=== PATIENT | male | born 1960 | race Caucasian/White ===

== ENCOUNTER → 2019-05-19 | Outpatient (CLI) | payer MEDICARE, OTHER ==
--- NOTE | 2019-05-19 21:30 | NUR ---
CURRENT MEDICATION LIST: ASPIRIN 81, LYRICA 100MG, LESATIN 50, AZYCLOVIR 800, MONGTELUKAST 10, ATORVASTATIN, METFORMIN 1000, FLUXETINE 20. Addendum: 05/20/19 at 0054 by HARRIET LEMUS Amended: Links added.
== END | disposition home or self-care (01) ==
LOC: SLP 20:13
PROVIDERS: ATTEND Internal Medicine
DX: G47.33 Obstructive sleep apnea (adult) (pediatric) (principal); I10 Essential (primary) hypertension; E11.9 Type 2 diabetes mellitus without complications; Z68.32 Body mass index [BMI] 32.0-32.9, adult
CPT/HCPCS: 95810

== ENCOUNTER → 2019-06-07 | Outpatient (CLI) | payer MEDICARE | END | disposition home or self-care (01) | LOC: SLP 22:06 | PROVIDERS: ATTEND Internal Medicine | DX: G47.33 Obstructive sleep apnea (adult) (pediatric) (principal) | CPT/HCPCS: 95811 ==

== ENCOUNTER → 2020-02-24 | Outpatient (CLI) | payer OTHER | END | disposition home or self-care (01) | LOC: RAH 07:39 | PROVIDERS: ATTEND Internal Medicine Cardiovascular Disease | DX: Z13.6 Encounter for screening for cardiovascular disorders (principal) | CPT/HCPCS: 75571 ==

== ENCOUNTER → 2020-02-24 | Outpatient (CLI) | payer OTHER ==
[~2020-02-24] MED LIST: REGADENOSON 0.4 MG/5 ML PF SYG IVP SCH
== END | disposition home or self-care (01) ==
LOC: SHCH 07:34
PROVIDERS: ATTEND Internal Medicine Cardiovascular Disease
DX: R07.9 Chest pain, unspecified (principal)
CPT/HCPCS: 78452; 93017; 96374; A9500 ×2; J2785

== ENCOUNTER → 2020-04-02 | Outpatient (CLI) | payer OTHER ==
[2020-04-02 12:47] LABS: BASOPHILS % (AUTO) 0.6 % (0.0-5.0); EOSINOPHILS % (AUTO) 5.3 % (0.0-8.0); HEMATOCRIT 35.9 % (42-54); LYMPHOCYTES % (AUTO) 27.1 % (21.0-51.0); MEAN CORPUSCULAR VOLUME 91.3 fL (79-99); MONOCYTES % (AUTO) 4.9 % (3.0-13.0); NEUTROPHILS % (AUTO) 61.9 % (40.0-77.0); PLATELET COUNT (AUTO) 269 K/uL (130-400); RED BLOOD CELL COUNT(AUTO) 3.93 MIL/uL (4.50-6.20); RED CELL DISTRIBUTION WIDTH 13.2 % (11.0-15.5); WHITE BLOOD COUNT (AUTO) 8.8 K/uL (4.8-10.8)
[2020-04-02 12:54] LABS: CREATININE 1.3 mg/dL (0.5-1.5); POTASSIUM 4.6 mmol/L (3.5-5.1)
[2020-04-02 12:57] LABS: INR 0.92 (0.85-1.15); PARTIAL THROMBOPLASTIN TIME 25.2 SEC (26.3-35.5)
[2020-04-02 13:43] LABS: APPEARANCE,URINE Clear (CLEAR); BILIRUBIN,URINE Negative (NEGATIVE); COLOR,URINE Yellow (YELLOW); GLUCOSE, URINE (UA) 500 mg/dL (NEGATIVE); KETONES,URINE Negative (NEGATIVE); LEUKOCYTE ESTERASE ,URINE Moderate (NEGATIVE); NITRATE,URINE Negative (NEGATIVE); OCCULT BLOOD,URINE Trace (NEGATIVE); PROTEIN,URINE Negative (NEGATIVE)
[2020-04-02 14:21] LABS: BACTERIA,URINE Moderate /HPF (None Seen); RBC,URINE 0-1 /HPF (0-1)
== END ==
LOC: EDSTATUS 12:00 → LAB 12:01
PROVIDERS: ATTEND Internal Medicine Cardiovascular Disease
DX: Z01.818 Encounter for other preprocedural examination (principal); I25.10 Atherosclerotic heart disease of native coronary artery without angina pectoris; Z79.01 Long term (current) use of anticoagulants
CPT/HCPCS: 36415; 71045; 80048; 81001; 85025; 85610; 85730; 87077; 87088; 87186; 93005

== ENCOUNTER → 2020-09-18 | Outpatient (CLI) | payer OTHER ==
[~2020-09-18] VITALS: Ht 185.4 cm; Wt 115.0 kg
[2020-09-18 12:38] LABS: BASOPHILS % (AUTO) 0.5 % (0.0-5.0); EOSINOPHILS % (AUTO) 4.2 % (0.0-8.0); MEAN CORPUSCULAR HEMOGLOBIN 31.4 pg (27.0-33.0); MEAN CORPUSCULAR HGB CONC 34.8 g/dL (32.0-36.0); MEAN CORPUSCULAR VOLUME 90.5 fL (79-99); MONOCYTES % (AUTO) 5.1 % (3.0-13.0); PLATELET COUNT (AUTO) 282 K/uL (130-400); RED BLOOD CELL COUNT(AUTO) 4.42 MIL/uL (4.50-6.20); WHITE BLOOD COUNT (AUTO) 16.4 K/uL (4.8-10.8)
[2020-09-18 12:38] LABS: APPEARANCE,URINE Cloudy (CLEAR); BILIRUBIN,URINE Small (NEGATIVE); COLOR,URINE Dark Yellow (YELLOW); GLUCOSE, URINE (UA) 500 mg/dL (NEGATIVE); KETONES,URINE Trace mg/dL (NEGATIVE); LEUKOCYTE ESTERASE ,URINE Trace (NEGATIVE); NITRATE,URINE Negative (NEGATIVE); OCCULT BLOOD,URINE Negative (NEGATIVE); PROTEIN,URINE POS 1+ mg/dL (NEGATIVE)
[2020-09-18 12:50] LABS: INR 0.92 (0.85-1.15); PARTIAL THROMBOPLASTIN TIME 24.4 SEC (26.3-35.5)
[2020-09-18 12:55] LABS: BACTERIA,URINE Rare /HPF (None Seen); MUCUS,URINE Moderate LPF (None Seen); RBC,URINE 0-1 /HPF (0-1); SQUAMOUS EPITHELIAL CELL,UR Rare /HPF (0-2); WBC,URINE 0-1 /HPF (0-1)
[2020-09-18 12:57] LABS: CREATININE 1.4 mg/dL (0.5-1.5); POTASSIUM 4.8 mmol/L (3.5-5.1)
--- NOTE | 2020-09-21 10:34 | NUR ---
LABS ABNORMAL WBC , CREA LEVEL REPORTED TO Esther ENGLE, FURTHER ORDERS GIVEN AND WILL BE CARRIED OUT
--- NOTE | 2020-09-21 10:37 | NUR ---
LABS PER CYNDIE REPEAT CBC EARLY AM DAY OF PROCEUDRE. IF WBC CONTINUES TO BE ELEVATED PATIENT WILL BE RESCHEDULED FOR ANOTHER DAY
--- NOTE | 2020-09-21 11:24 | NUR ---
PREOP CALLED PATIENT TO PREOP OVER THE PHONE , PT STATED HAS HAD DIARRHEA NON STOP AND ABD PAIN SINCE MONDAY. DENIES FEVER. PT WILL SEE PCP TODAY. INFORMED I ULI NEGLE, PROCEDURE WAS CANCELLED AT THIS TIME PT INFORMED. SCHEDULING NOTIFIED
== END ==
LOC: DAH 10:00 → EDSTATUS 09-23 11:00
PROVIDERS: ATTEND Internal Medicine Cardiovascular Disease
DX: Z01.810 Encounter for preprocedural cardiovascular examination (principal); I25.119 Atherosclerotic heart disease of native coronary artery with unspecified angina pectoris; I25.2 Old myocardial infarction; I10 Essential (primary) hypertension; E78.5 Hyperlipidemia, unspecified; E11.9 Type 2 diabetes mellitus without complications; E66.9 Obesity, unspecified; G47.33 Obstructive sleep apnea (adult) (pediatric); K21.9 Gastro-esophageal reflux disease without esophagitis; Z79.84 Long term (current) use of oral hypoglycemic drugs; Z79.82 Long term (current) use of aspirin; Z79.899 Other long term (current) drug therapy; Z98.890 Other specified postprocedural states; Z88.8 Allergy status to other drugs, medicaments and biological substances; Z91.018 Allergy to other foods; Z68.33 Body mass index [BMI] 33.0-33.9, adult; Z53.8 Procedure and treatment not carried out for other reasons
CPT/HCPCS: 36415; 71045; 80048; 81001; 85025; 85610; 85730; 93005

== ENCOUNTER 2020-11-09 07:35 | Day surgery (SDC) | payer OTHER ==
[2020-11-06 12:12] LABS: BASOPHILS % (AUTO) 0.7 % (0.0-5.0); EOSINOPHILS % (AUTO) 7.1 % (0.0-8.0); HEMATOCRIT 42.3 % (42-54); LYMPHOCYTES % (AUTO) 29.9 % (21.0-51.0); MEAN CORPUSCULAR HEMOGLOBIN 31.1 pg (27.0-33.0); MEAN CORPUSCULAR VOLUME 91.4 fL (79-99); MONOCYTES % (AUTO) 4.7 % (3.0-13.0); NEUTROPHILS % (AUTO) 57.3 % (40.0-77.0); PLATELET COUNT (AUTO) 318 K/uL (130-400); RED BLOOD CELL COUNT(AUTO) 4.63 MIL/uL (4.50-6.20); RED CELL DISTRIBUTION WIDTH 13.2 % (11.0-15.5); WHITE BLOOD COUNT (AUTO) 11.9 K/uL (4.8-10.8)
[2020-11-06 12:22] LABS: CREATININE 1.6 mg/dL (0.5-1.5); POTASSIUM 4.9 mmol/L (3.5-5.1)
[2020-11-06 12:24] LABS: INR 0.96 (0.85-1.15); PROTHROMBIN TIME 10.5 SEC (9.6-11.6)
[2020-11-06 12:25] LABS: PARTIAL THROMBOPLASTIN TIME 24.2 SEC (26.3-35.5)
[2020-11-06 12:52] LABS: APPEARANCE,URINE Clear (CLEAR); BILIRUBIN,URINE Negative (NEGATIVE); COLOR,URINE Yellow (YELLOW); GLUCOSE, URINE (UA) 500 mg/dL (NEGATIVE); KETONES,URINE Trace mg/dL (NEGATIVE); LEUKOCYTE ESTERASE ,URINE Negative (NEGATIVE); NITRATE,URINE Negative (NEGATIVE); OCCULT BLOOD,URINE Negative (NEGATIVE); PROTEIN,URINE Negative (NEGATIVE)
[2020-11-06 13:08] LABS: BACTERIA,URINE Few /HPF (None Seen); SQUAMOUS EPITHELIAL CELL,UR 0-2 /HPF (0-2); WBC,URINE None Seen /HPF (0-1)
[2020-11-06 13:33] VITALS: BP 151/78
[2020-11-09] VITALS (11 sets, daily range): BP systolic 118–143; BP diastolic 57–83
[~2020-11-09] VITALS: Ht 185.4 cm; Wt 110.8 kg
[~2020-11-09 07:35] MED LIST changes: +ACYC800T PO; +ASPI-1443 PO; +ATOR80TA PO; +CETI-89 PO; +DIPH25TA51 PO; +ESOM40CA PO; +FLUO20CA30 PO; +LABE100T5 PO; +LOSA25TA41 PO; +METF-446 PO; +MONT10TA21 PO; +PRED20TA3 PO; +PREG100C PO; -REGADENOSON 0.4 MG/5 ML PF SYG IVP SCH
[2020-11-09] MEDS ORDERED: SODIUM CHLORIDE 0.9% 1000ML 1,000 ML IV ONE (07:49)
[2020-11-09] MEDS ORDERED: DiphenhydrAMINE HCL 50 MG/ML VIAL ONE (08:09)
[2020-11-09] MEDS ORDERED: METHYLPREDNISOLONE SOD SUCC 125MG/2ML VIAL ONE (08:09)
[2020-11-09] MEDS ORDERED: SODIUM CHLORIDE 0.9% 1000ML 1,000 ML IV SCH ×2 (08:30→11:15)
[2020-11-09] MEDS ORDERED: HEPARIN SODIUM 1000UNIT/ML 10ML VIAL ONE (08:56)
[2020-11-09] MEDS ORDERED: SODIUM BICARB 50MEQ 50ML VIAL 50 ML ONE (08:56)
[2020-11-09] MEDS ORDERED: NITROGLYCERIN 2 MG/VIAL VIAL IV ONE (08:56)
[2020-11-09] MEDS ORDERED: IOHEXOL-350 50ML VIAL IV ONE (08:57)
[2020-11-09] MEDS ORDERED: LIDOCAINE HCL 2% 20ML ONE (08:57)
[2020-11-09] MEDS ORDERED: MEPERIDINE-PF 25 MG/ML SYG ONE ×2 (08:57→10:23)
[2020-11-09] MEDS ORDERED: IOHEXOL 350 MG/ML 100ML INFUS..BTL IV ONE (08:57)
[2020-11-09] MEDS ORDERED: MIDAZOLAM HCL 1 MG/ML 2ML VIAL ONE ×2 (08:57→10:23)
[2020-11-09] MEDS ORDERED: INSULIN HUMULIN R 100 UNIT/ML 3ML SQ SCH ×2 (09:15→11:30)
[2020-11-09] MEDS ORDERED: NICARDIPINE HCL 25 MG/10 ML ML IV ONE (09:35)
[2020-11-09] MEDS ORDERED: DEXTROSE 50%-WATER 50 ML DISP.SYRIN IV PRN (11:15)
== END 2020-11-09 15:10 | disposition home or self-care (01) ==
LOC: DAH 07:35
PROVIDERS: ATTEND Internal Medicine Cardiovascular Disease
DX: I25.118 Atherosclerotic heart disease of native coronary artery with other forms of angina pectoris (principal); E11.9 Type 2 diabetes mellitus without complications; I10 Essential (primary) hypertension; E78.5 Hyperlipidemia, unspecified; E66.9 Obesity, unspecified; K21.9 Gastro-esophageal reflux disease without esophagitis; G47.33 Obstructive sleep apnea (adult) (pediatric); E86.0 Dehydration; Z98.84 Bariatric surgery status; Z99.89 Dependence on other enabling machines and devices; Z79.4 Long term (current) use of insulin; Z79.82 Long term (current) use of aspirin; Z79.899 Other long term (current) drug therapy; Z79.01 Long term (current) use of anticoagulants
CPT/HCPCS: 36415; 71045; 80048; 81001; 82948 ×3; 85025; 85610; 85730; 93005; 93458; 96360; 96361; A4215; A4216; A4221; A4222; A4223 ×3; A4606; A4663; C1769; C1894; J1200; J1644 ×2; J1815 ×2; J2175 ×2; J2250 ×2; J2930; J3490 ×4; J7030; Q9965; Q9967; 99156; 99157

== ENCOUNTER → 2020-11-26 | Outpatient (CLI) | payer OTHER ==
[~2020-11-26] MED LIST changes: -DIPH25TA51 PO; -PRED20TA3 PO
== END | disposition home or self-care (01) ==
LOC: OIH 09:45
PROVIDERS: ATTEND Internal Medicine
DX: J44.9 Chronic obstructive pulmonary disease, unspecified (principal); M47.814 Spondylosis without myelopathy or radiculopathy, thoracic region
CPT/HCPCS: 71046

== ENCOUNTER → 2021-01-13 | Outpatient (CLI) | payer OTHER | END | disposition home or self-care (01) | LOC: RAH 08:45 | PROVIDERS: ATTEND Internal Medicine Gastroenterology | DX: R93.3 Abnormal findings on diagnostic imaging of other parts of digestive tract (principal) | CPT/HCPCS: 74240 ==

== ENCOUNTER → 2022-07-21 | Outpatient (CLI) | payer OTHER ==
[~2022-07-21] MED LIST changes: +ACYC-138 PO; -ACYC800T PO; -LABE100T5 PO; +LABE100T7 PO
== END | disposition home or self-care (01) ==
LOC: RAH 11:03
PROVIDERS: ATTEND Psychiatry & Neurology Neurology
DX: G31.9 Degenerative disease of nervous system, unspecified (principal); J32.0 Chronic maxillary sinusitis; R26.0 Ataxic gait; M47.812 Spondylosis without myelopathy or radiculopathy, cervical region; M48.02 Spinal stenosis, cervical region; Z98.890 Other specified postprocedural states
CPT/HCPCS: 70551; 72141

== ENCOUNTER → 2024-03-25 | Outpatient (CLI) | payer OTHER ==
[~2024-03-25] MED LIST changes: +MONT-46 PO; -MONT10TA21 PO
[2024-03-25] MEDS: REGADENOSON 0.4 MG/5 ML PF SYG IVP ONE (13:31)
== END | disposition home or self-care (01) ==
LOC: SHCH 08:11
PROVIDERS: ATTEND Internal Medicine Cardiovascular Disease
DX: R00.2 Palpitations (principal); R06.09 Other forms of dyspnea
CPT/HCPCS: 78452; 96374; 93017; J2785; A9500 ×2

== ENCOUNTER → 2024-12-10 | Outpatient (CLI) | payer OTHER ==
[~2024-12-10] MED LIST changes: +ATOR-428 PO; -ATOR80TA PO
--- NOTE | 2024-12-11 08:28 | HMCSR ---
APPROVED REPORT Laterality: Bilateral Indications R09.89 Doppler Spectral Velocity Analysis PSV / EDVPSV / EDV ECA (R) 92 / cm/sECA (L) 147 / cm/s dICA (R) 81 / 28 cm/sdICA (L) 98 / 37 cm/s Kelsi (R) 79 / 29 cm/smICA (L) 66 / 19 cm/s pICA (R) 64 / 13 cm/spICA (L) 90 / 22 cm/s dCCA (R) 73 / 17 cm/sdCCA (L) 85 / 22 cm/s mCCA (R) 99 / 16 cm/smCCA (L) 83 / 21 cm/s pCCA (R) 68 / 15 cm/spCCA (L) 63 / 12 cm/s Vert (R) 61 / cm/sVert (L) 61 / cm/s Subl. (R) 114 / cm/sSubl. (L) 177 / cm/s ICA/CCA 0.82ICA/CCA 1.15 Technologist Impression Minimal plaque noted in the bilateral carotid system ZENAIDA and LICA appear patent without hemodynamic significance. Bilateral vertebral arteries appear antegrade. Conclusion Minimal plaque noted in the bilateral carotid system ZENAIDA and LICA appear patent without hemodynamic significance. Bilateral vertebral arteries appear antegrade. Conclusion Minimal plaque noted in the bilateral carotid system ZENAIDA and LICA appear patent without hemodynamic significance. Bilateral vertebral arteries appear antegrade.
== END | disposition home or self-care (01) ==
LOC: SHCH 14:36
PROVIDERS: ATTEND Internal Medicine Cardiovascular Disease
DX: I65.23 Occlusion and stenosis of bilateral carotid arteries (principal); R09.89 Other specified symptoms and signs involving the circulatory and respiratory systems
CPT/HCPCS: 93880

== ENCOUNTER → 2024-12-13 | Outpatient (CLI) | payer OTHER ==
--- NOTE | 2024-12-16 09:19 | HMCSR ---
APPROVED REPORT EXAM: Two-dimensional and M-mode echocardiogram with Doppler and color Doppler. INDICATION ICD: Atherosclerotic heart disease of [place] coronary artery without angina pectoris I25.10 2D Dimensions RVDd4.6 cmLVEF(%)59.1 (>50%)LVED Vol(simp.)106.8 mL IVSd0.8 (0.7-1.1cm)FS(%)32 %LVES Vol(simp.)37.2 mL LVDd5.6 (3.8-5.6cm)LA (2D)4.2 (1.6-4.0cm)LVEF(%, simp.)65 % PWd1.2 (0.7-1.1cm)Ao Root(2D)3.7 (2.0-3.7cm)LA ESV INDEX (BP)28.49 mL/m2 LVDs3.8 (2.5-4.0cm)LVOT diam2.1 (1.8-2.4cm) IVC diam2.5 cm M-Mode Dimensions EPSS0.5 cm LA (MM)4.0 (1.6-4.0cm) Ao Root(MM)3.0 (2.0-3.7cm) Aortic Valve AoV Vmax1.5 m/Lisa Peak GR9.4 mmHgLVOT Vmax0.9 m/s AoV VTI0.4 mAo Mean GR4.9 mmHgLVOT VTI0.22 m SEJAL (VMAX)2.2 cm2AVA (VTI) 2.2 cm2 Mitral Valve MV E Vmax62.0 cm/sDECEL Skrx430 ms MV A Vmax66.7 cm/sP 1/2 T73 ms E/A ratio0.9MVA (PHT)3.0 cm2 TDI E/E' Gthitm60.3E/E' Lateral6.2 Medial E' Peak V6.00 cm/sLateral E' Peak V10.00 cm/s Left Ventricle Left ventricular cavity size is normal. There is normal LV segmental wall motion. There is normal lef t ventricular wall thickness. LVEF is 60-65%. No left ventricle thrombus noted on this study. The lef t ventricular diastolic function is normal. Right Ventricle The right ventricle is mildly dilated. The right ventricular systolic function is normal. Atria The left atrium size is normal. The right atrium is moderately dilated. Aortic Valve The aortic valve is normal in structure and function. No aortic regurgitation is present. There is no aortic valvular stenosis. Mitral Valve Mitral annular calcification is borderline. Mitral regurgitation is mild. There is no mitral valve st enosis. Tricuspid Valve The tricuspid valve is normal in structure and function. There is no tricuspid valve regurgitation no leta. Pulmonic Valve The pulmonary valve is normal in structure and function. There is no pulmonic valvular regurgitation. Great Vessels The aortic root is normal in size. IVC is dilated and collapses >50% with inspiration. Pericardium No pericardial effusion. Conclusion Left ventricular cavity size is normal. LVEF is 60-65%. The right ventricle is mildly dilated. The left atrium size is normal. The right atrium is moderately dilated. The aortic valve is normal in structure and function. Mitral annular calcification is borderline. Mitral regurgitation is mild. There is no mitral valve stenosis. The tricuspid valve is normal in structure and function. The aortic root is normal in size. IVC is dilated and collapses >50% with inspiration. No pericardial effusion.
== END | disposition home or self-care (01) ==
LOC: RAH 09:38
PROVIDERS: ATTEND Internal Medicine Cardiovascular Disease
DX: I34.0 Nonrheumatic mitral (valve) insufficiency (principal); I34.81 Nonrheumatic mitral (valve) annulus calcification; I25.10 Atherosclerotic heart disease of native coronary artery without angina pectoris
CPT/HCPCS: 93306

== ENCOUNTER → 2025-01-28 | Outpatient (CLI) | payer OTHER ==
[2025-01-28] MEDS: REGADENOSON 0.4 MG/5 ML PF SYG IVP ONE (15:41)
== END | disposition home or self-care (01) ==
LOC: SHCH 08:17
PROVIDERS: ATTEND Internal Medicine Cardiovascular Disease
DX: I25.10 Atherosclerotic heart disease of native coronary artery without angina pectoris (principal)
CPT/HCPCS: 78452; 93017; J2785; A9500 ×2

== ENCOUNTER → 2025-05-02 | Outpatient (CLI) | payer OTHER ==
[~2025-05-02] MED LIST changes: -FLUO20CA30 PO; +FLUO20CA32 PO
[2025-05-02] MEDS: REGADENOSON 0.4 MG/5 ML PF SYG IVP ONE (12:14)
--- NOTE | 2025-05-02 17:40 | HMCSR ---
APPROVED REPORT Height: 6 ft 1in Weight: 225 lbs TEST INDICATIONS Hypertension/HDD The imaging protocol used to acquire images was Rest Tc-99m/stress Tc-99m 1 day Consent: The procedure was explained and understood by the patient. Informerd consent was witnessed Jacklyn Coronado RN First, low dose rest was performed then high dose stress. RESTING DATA: The resting ekg shows: NSR Rest SPECT myocardial perfusion imaging was performed in supine position minutes following the intra venous injection of 10.5 mCi of Tc-99 Sestamibi. Time of rest injection: 12:08: Date: 05/02/2025 PHARMACOLOGIC STRESS: Pharmacologic stress test was performed by injecting regadenoson 0.4 mg IV push followed by the intra venous injection of 27 mCi of Tc-99 Sestamibi. Time of stress injection: 13:45: Date: 05/02/2025 Heart Rate at time of stress injection: 57 bpm. Gated Stress SPECT was performed 60 minutes after stress injection. The images were gated to evaluate regional wall motion and calculate left ventricular ejection fracti on. STRESS DETAILS Reason for Termination: Infusion complete Stress Symptoms: No chest pain or symptoms Max HR Achieved: 74 bpm % of APMHR Achieved: 56 Max Blood Pressure: 113/59 mmHg Stress ECG: NSR Arrhythmia: No. ST Change: No. Study quality was fair. Artifact: motion artifact, diaphragmatic artifact, increased GI uptake LEFT VENTRICLE Size: The left ventricular size is normal. Systolic Function:The left ventricular systolic function is normal. Wall Motion: No regional wall motion abnormalities noted. The left ventricular ejection fraction was calculated to be 64%.TID = . LV PERFUSION The rest and stress images show normal perfusion. No reversible ischemia or areas of infarct were se en. No obvious TID. RV Size/Shape The right ventricle was not well visualized. IMPRESSION Stress ECG Summary: Nondiagnostic Conclusion Normal Lexiscan stress test. The rest and stress images show normal perfusion. No reversible ischemia or areas of infarct were se en. No obvious TID. The left ventricular size is normal. No regional wall motion abnormalities noted. The left ventricula r systolic function is normal. Post stress LVEF was calculated to be 64%. Stress ECG Summary: Nondiagnostic Study indicates a low risk for cardiovascular events.
== END | disposition home or self-care (01) ==
LOC: RAH 11:13
PROVIDERS: ATTEND Internal Medicine Cardiovascular Disease
DX: I10 Essential (primary) hypertension (principal); R07.9 Chest pain, unspecified; I25.10 Atherosclerotic heart disease of native coronary artery without angina pectoris; I65.23 Occlusion and stenosis of bilateral carotid arteries; Z79.899 Other long term (current) drug therapy
CPT/HCPCS: 78452; 93017; J2785; A9500 ×2